=== PATIENT | male | born 1985 | race Two or more races ===

== ENCOUNTER 2025-08-15 13:37 | Emergency (ER) | payer SELFPAY ==
[2025-08-15 13:58] VITALS: BP 158/85; PULSE 86; RESP 20; TEMP 36.6; O2SAT 96
--- NOTE | 2025-08-15 14:16 | EDNOTE_ITS ---
ED Eye Problem RME/HPI General Chief complaint: Eye Problems Stated complaint: Trash in left eye X 2 days Time Seen by Provider: 08/15/25 13:50 Arrival date/time: 08/15/25 13:37 40-year-old male patient was brought in by family for evaluation regarding eye pain. Patient was grinding metal without any eye protection, noticed a piece of metal went to the left eye resulting to discomfort and redness. Patient denies any visual changes. Denies any headache denies any other complaints no medications taken prior to ER visit. Related Data Previous Rx's ?Medication ?Instructions ?Recorded neomycin 3.5 mg-polymyxin 10,000 1 drp ophthalmic (eye ) Q6H 7 days 08/15/25 unit-hydrocort 10 mg/mL eye #7.5 mL drop,susp Allergies Allergy/AdvReac Type Severity Reaction Status Date / Time No Known Drug Allergies Allergy Verified 08/15/25 13:41 Review of Systems Review of Systems Narrative Review of Systems: Review of system reviewed and within normal limits except mentioned in HPI ED Exam Narrative Physical exam: VITAL SIGNS: Reviewed. GENERAL APPEARANCE: Alert and interactive, follows commands, no acute distress, HEAD AND FACE: Non-traumatic. ENT: PERRL, pink conjunctivitis, eyelid no trauma, Mucous membrane moist. Foreign body noted at 9 o'clock position left eye no other foreign body noted. NECK: Supple, nontender, no nuchal rigidity. CHEST: No tenderness, no crepitus, no paradoxical movement, no retractions. LUNGS: Clear, well ventilated, symmetric, no rales, no wheezing, no ronchi, no stridor, good breath sounds bilaterally. HEART: Regular rate, regular rhythm, no murmur, no gallops. ABDOMEN: Soft, positive bowel sounds, nondistended, no guarding, nontender, no rebound, no masses, RECTAL: Deferred. GENITAL: Deferred. NEUROLOGICAL: Gross motor function intact sensory function intact, Appropriate for age. MUSCULOSKELETAL: low back nontender, full range of motion. EXTREMITIES: Nontender, full range of motion. SKIN: Color pink, dry, no rash, no lacerations, no abrasions, no contusions. LYMPHATICS: Deferred. Course Quality Measures none Orders Category Date Time Status BRADLEY/POLY/HC (Cortisporin) OP [Cortisporin Op Cecilia] Med 08/15/25 14:15 Once See Dose Instructions LEFT EYE X1 ONE Vital Signs Vital signs: Vital Signs Temperature 97.8 F 08/15/25 13:58 Pulse Rate 86 08/15/25 13:58 Respiratory Rate 20 08/15/25 13:58 Blood Pressure 158/85 H 08/15/25 13:58 Pulse Oximetry (%) 96 08/15/25 13:58 Oxygen Delivery Method Room Air 08/15/25 13:58 Eye MDM Narrative MDM Narrative:: 40-year-old male patient was brought in by family for evaluation regarding eye pain. Patient was grinding metal without any eye protection, noticed a piece of metal went to the left eye resulting to discomfort and redness. Patient denies any visual changes. Denies any headache denies any other complaints no medications taken prior to ER visit. Eye was examined under the Gomez lamp. Tetracaine ophthalmic drop was administered to the eye and fluorescein strip was applied and was then illustrated under the Gomez lamp. Abrasion noted, at 9:00 o'clock, + foreign body noted, foreign body was removed using the G18 needle with success. Eye was then irrigated with copious amounts of eye stream. Procedure was well tolerated by patient. Verbalized understanding. Patient was given Cortisporin eyedrop. Patient data External records reviewed:: None Clinical information provided by:: patient Social determinants that could affect healthcare access:: none Patient has the following chronic illnesses:: None How is presenting disease/condition affected by chronic disease/condition?: no chronic disease Evaluation data The following diagnostics were reviewed and interpreted by me:: other (specify) (None) Lab and/or radiology exams considered but not ordered:: None Interpretation Summary: None Medications / Prescriptions Medications or Prescriptions considered but not ordered:: None Medication administrations:: Medication Administration History Neomycin/Polymyxin/Hydrocortisone (Bradley/Poly/Hc (Cortisporin) Op Susp 7.5 Ml Btl) 0 drop LEFT EYE X1 ONE Stop: 08/15/25 14:16 Cortisporin eyedrops Consultations Consultation(s) initiated? (list below): No Diagnosis Eye Problem Differential Diagnosis: corneal abrasion and other (Foreign body cornea,) Most likely diagnosis given after review of the tests above:: Foreign body cornea Admission Indicated Admission indicated?: not indicated Admission Request Was there a request for admission?: No Disposition Plan Disposition Plan: Discharge Discharge Attestation Discharge Attestation: The patient was given an opportunity to ask questions and understood the discharge instructions. Discharge instructions specifically effects, indications for sooner follow up or return to the emergency department, and the expected course of current diagnosis. Patient condition: Stable Discharge Plan Plan Patient Disposition: HOME (Self Care) Discharge Disposition comment: Stable Prescriptions/Referrals Prescriptions/Med Rec: New [id number] 3.5-10,000-10 mg-unit-mg/mL drops,suspension 1 drp ophthalmic (eye) Q6H 7 Days Qty: 7.5 0RF Problem List Clinical Impression: Corneal foreign body Patient/Caregiver Discharge Instructions Discharge Activity: activity as tolerated Education Materials: ED Corneal Foreign Body, Removed Additional Instructions: Thank you for the opportunity for serving you today. You are stable for discharged . You are advised to: Follow-up with your PCP in 1 to 2 days Return to ED for worsening of symptoms Increase oral fluids Take medication as prescribed Print Language: [place] Stand Alone Forms: Latoya Award Info., Patient Portal Info Letter CASEY/RICARDA Supervising Physician CASEY/RICARDA Supervising Physician: MD Jinny
[2025-08-15] MEDS: NEO/POLY/HC (Cortisporin) OP SUSP 7.5 ML BTL LEFT EYE (14:30)
== END 2025-08-15 14:57 | disposition home or self-care (01) ==
PROVIDERS: Emergency Provider Emergency Medicine
DX: T15.02XA Foreign body in cornea, left eye, initial encounter (principal); W44.9XXA Unspecified foreign body entering into or through a natural orifice, initial encounter
CPT/HCPCS: 99281